=== PATIENT | female | born 1980 | race Caucasian/White ===

== ENCOUNTER → 2020-04-30 | Outpatient (CLI) | payer SELFPAY ==
[2017-04-23 14:03] VITALS: BMI 33.9
--- NOTE | 2020-04-29 08:30 | FLU_PTH ---
PATIENT: MILTON JUNE LOC: [facility] U#:[id number] AGE/SX: 40/F ROOM: RE04/30/[address]: Dr. Inez Patricio MD : 1980 BED: DIS: 04/30/2020 SPEC #: [id number] RECD: 04/30/20 11:43 STATUS: MICAH REMonica #: [id number] TEGAN: 04/29/20 08:[address]: Inez Patricio DEPT: CYTOLOGY RECD BY: Delilah Jiang ENTERED: 05/01/20 05:51 SP TYPE: Fluid OTHR DR: Dr. Burak Dykes, DO Tissues: Breast, NOS Procedures: Special Stain Group II Surgery Specimen Level IV Cytospin Fluid HEADER OPERATION: Ultrasound-guided right breast cyst aspiration PRE-OP DIAGNOSIS: Abnormal mammogram TISSUE SUBMITTED: Right breast cyst fluid for cytology DIAGNOSIS CYTOLOGY Fine needle aspiration, right breast (cytospin and cell block): Negative for malignant cells. See cytology study. AM:federico 05/01/2020 CYTOLOGY STUDY Slides are reviewed. The specimen contains rare ductal epithelial cells. Clinical correlation is suggested. CYTOLOGY GROSS Received is 15 ml of cloudy fluid labeled with the patient's name and and designated per the requisition as right breast cyst. Submitted for cytology preparation including cell block. / federico 04/30/20 TC:5 CPT: 51973, 51010
== END | disposition home or self-care (01) ==
LOC: LABSPEC 13:45
PROVIDERS: PCP Student in an Organized Health Care Education/Training Program; Referring Provider Surgery; Visit Provider Surgery
DX: R92.8 Other abnormal and inconclusive findings on diagnostic imaging of breast (principal)
CPT/HCPCS: 88108; 88305; 88313

== ENCOUNTER → 2021-06-10 | Outpatient (CLI) | payer SELFPAY ==
[2021-06-17 15:33] LABS: HPV APTIMA, High Risk Negative (Negative)
== END | disposition home or self-care (01) ==
LOC: LABSPEC 13:23
PROVIDERS: PCP Student in an Organized Health Care Education/Training Program; Visit Provider Student in an Organized Health Care Education/Training Program
DX: Z12.4 Encounter for screening for malignant neoplasm of cervix (principal)
CPT/HCPCS: 87624; 88175; G0145

== ENCOUNTER 2021-07-27 23:01 | Emergency (ER) | payer SELFPAY ==
[2021-07-27 23:02] VITALS: BP 168/102; PULSE 82; RESP 18; TEMP 35.9; O2SAT 100; BMI 33.3
--- NOTE | 2021-07-27 23:31 | EDS_ITS ---
HPI HPI - GI History of Present Illness Chief Complaint: Abd Pain Informant: patient Narrative Narrative: Patient is a 41-year-old female with history of 2 C-sections and hypertension presenting with abdominal pain and vomiting. Patient states she ate dinner around 4 PM which consisted of chicken and corn on the cob. Shortly after that she developed multiple episodes of vomiting. States he threw at least 8 times. Last time she threw up was at 10:30 PM. She notes the last time she threw up there was streaks of blood and bile in her vomit. She is also complaining of pretty significant epigastric and upper abdominal pain that radiates to her back. She has chills associate with the nausea but does not think she is any fevers. Denies any chest pain or difficulty breathing. Her last bowel movement was yesterday and she feels it was normal. She denies any urinary symptoms. She denies concern for . She is never really had a thing like this before. No sick contacts at home. No other complaints at this time. Patient denies any tobacco, alcohol or illicit drug use. PFSH PFSH Home Medications lisinopril 20 mg-hydrochlorothiazide 12.5 mg tablet PO 30 days ##30 04/23/17 [History Last Taken Unknown] famotidine 20 mg tablet (Pepcid) 20 mg PO BID #14 tabs 07/28/21 [Rx Last Taken Unknown] ondansetron 4 mg disintegrating tablet 4 mg PO Q6H PRN nausea and vomiting #14 tabs 07/28/21 [Rx Last Taken Unknown] Allergy/AdvReac Type Severity Reaction Status Date / Time Penicillins Allergy Unknown Verified 04/23/17 14:08 Social History Smoking Status: Never smoker ROS ROS ED Constitutional Constitutional ED: Reports chills; Denies fever(s) ENT ENT ED: Denies sore throat Cardiovascular Cardiovascular: Denies chest pain or palpitations Respiratory/Chest Respiratory/Chest: Denies cough or dyspnea Gastrointestinal Gastrointestinal: Reports abdominal pain, nausea and vomiting; Denies constipation or diarrhea Genitourinary Genitourinary ED: Denies dysuria or hematuria Musculoskeletal Musculoskeletal: Reports back pain; Denies arthralgias or myalgias Integumentary Denies rash Neurologic Neurologic: Denies headache(s) Hematologic/Lymphatic Hematologic/Lymphatic: Denies easy bleeding or easy bruising EXAM Physical Exam Const Vital Signs: 07/27/21 23:02 07/28/21 02:32 Temperature 96.7 F L Temperature Source Temporal Pulse Rate 82 73 Respiratory Rate 18 20 H Blood Pressure 168/102 H 148/93 H Blood Pressure Mean 124 111 Pulse Ox 100 98 Oxygen Delivery Method Room Air Room Air Positive well nourished, well developed and obese General Appearance ED: well developed and NAD Nutritional Appearance: obese HEENT Reports moist mucous membranes Eyes PERRL and EOMs intact bilaterally Resp normal respiratory effort and clear to auscultation bilaterally Cardio regular rate, regular rhythm and no murmurs GI non-distended and no masses GI Narrative: Epigastric and right upper quadrant tenderness palpation. Positive Quintana sign. Auscultation: normoactive bowel sounds Back/Spine no CVA tenderness Extremity full ROM General Extremety ED: Negative for edema or tenderness General Extremity: Negative for edema Neuro moves all extremities, no sensory deficits noted and gait normal Psych mental status grossly normal Skin Skin Narrative: Normal color General Skin Exam: Negative for jaundice MDM MDM MDM Narrative Medical decision making narrative: Patient evaluated for epigastric abdominal pain after eating dinner last night she has diffuse pain in her epigastric region but does have a positive Quintana sign. Belly labs obtained as well as a right upper quadrant ultrasound. Patient is given IV Zofran, IV Pepcid and IV fluids. On repeat evaluation she does not feel improved with pain however her nausea has been improved. She is then given a dose of IV morphine however her nausea is worse and she is given a dose of IV Reglan. Her lab work is remarkable for a leukocytosis of 12.7. CMP and lipase largely unremarkable. Urinalysis consistent with some mild dehydration and contamination. Repeat evaluation abdomen is now soft and nontender. Right upper quadrant ultrasound does not show any acute process but does show diffuse hepatic steatosis. Patient is informed of these findings and states she is aware of her known fatty liver disease. Patient is given p.o. challenge and tolerates this. Given that she does not have any kidney stones and her right upper quadrant pain has now resolved I have a lower suspicion for a calculus cholecystitis. Patient is given surgery for outpatient follow-up. She is counseled on the differential diagnosis including gastritis, gastroenteritis, peptic ulcer disease and biliary colic which do not show up on our testing. She is discharged home in improved and stable condition. She is given return precautions. Lab Data Attestation: I reviewed the patient's lab results. Labs: Laboratory Results - last 24 hr 07/27/21 07/27/21 07/27/21 23:25 23:25 23:50 WBC 12.7 H RBC 5.14 Hgb 14.6 Hct 43.9 MCV 85.4 MCH 28.4 MCHC 33.3 RDW Std Deviation 42.1 RDW Coeff of Kelsy 13.4 Plt Count 294 MPV 10.4 Immature Gran % (Auto) 0.900 Neut % (Auto) 70.1 H Lymph % (Auto) 18.7 L Meade % (Auto) 8.4 Eos % (Auto) 1.1 Baso % (Auto) 0.8 Absolute Neuts (auto) 8.9 H Absolute Lymphs (auto) 2.37 Nucleated RBC % 0 Sodium 137 Potassium 3.7 Chloride 102 Carbon Dioxide 29.0 Anion Gap 6 BUN 22 H Creatinine 0.84 Estim Creat Clear Calc 77.71 Est GFR (MDRD) Af Amer 95 Est GFR (MDRD) Non-Af 79 BUN/Creatinine Ratio 26.2 H Glucose 146 H Calcium 9.3 Total Bilirubin 0.30 Direct Bilirubin 0.15 AST 26 ALT 48 Alkaline Phosphatase 53 Total Protein 7.9 Albumin 4.0 Globulin 3.9 Lipase 115 Urine Color Yellow Urine Clarity Clear Urine pH 5.0 Ur Specific [place] 1.030 Urine Protein Negative Urine Glucose (UA) Normal Urine Ketones 5 H Urine Occult Blood 10 H Urine Nitrite Negative Urine Bilirubin Negative Urine Urobilinogen Normal Ur Leukocyte Esterase Negative Urine RBC 0 SEEN Urine WBC 0-5 SEEN Ur Squamous Epith Cells 0-5 SEEN Urine Bacteria 1+ Urine Mucus 0 SEEN Urine Test Negative Radiography Diagnostic Testing: Clinical Impression(s) from Imaging Studies Gallbladder Ultrasound 07/28/21 23:30 IMPRESSION: Diffuse hepatic steatosis. No cholelithiasis. No biliary dilatation Electronically Signed: Cristobal Blandon MD at 2:22 EDT , Discharge Plan Triage Chief Complaint: Abd Pain ED Provider: Susan Garcia Dx/Rx/DC Orders Clinical Impression: Vomiting, Acute upper abdominal pain Instructions: ED Abdominal Pain Unkn Cause Fem, ED Vomiting (Adult) Prescriptions: New ondansetron 4 mg tablet,disintegrating 4 mg PO Q6H PRN (Reason: nausea and vomiting) Qty: 14 0RF famotidine [Pepcid] 20 mg tablet 20 mg PO BID Qty: 14 0RF No Action lisinopril-hydrochlorothiazide 20-12.5 mg tablet PO 30 Days Qty: 30 Label Comments: Primary Care Provider: Burak Dykes Referrals: Gerhard Tracey MD [STAFF PHYSICIAN] - As Needed (If you continue to have pain ) Burak Dykes DO [Primary Care Provider] - Activity Restrictions/Additional Instructions: Your work-up here showed fatty liver but the gallbladder was normal. Your lab work for your abdomen was largely normal. You did have a very mild elevation of your white blood cell count which is nonspecific. If your symptoms are worsening please return to the emergency room. Eat a bland diet until you are feeling better. Disposition Disposition: Home, Self Care Discharge Date/Time: 07/28/21 04:32
[2021-07-27] MEDS: 0.9% Normal Saline 1,000 ML 1000 ML IV (23:41)
[2021-07-27] MEDS: Ondansetron 4 MG/2 ML Vial IV (23:41)
[2021-07-27] MEDS: Famotidine 200 MG/20 ML MDV 20 MG in 0.9% Normal Saline (Pres. free 8 ML 300 MG IV (23:41)
[2021-07-27 23:42] LABS: Absolute Lymphocyte Count 2.37 X10^3/uL (0.83-4.51); Absolute Neutrophil Count 8.9 X10^3/uL (2.0-7.7); Basophil% 0.8 % (0-1); Eosinophil# 0.14 X10^3/uL; Eosinophils% 1.1 % (0-5); Hematocrit 43.9 % (37-47); Hemoglobin 14.6 g/dL (12.0-15.0); Lymphocyte # 2.37 X10^3/ul (0.83-4.51); Lymphocyte % 18.7 % (19-41); Mean Corp Hgb Conc 33.3 g/dL (32-36); Mean Corpuscular Hgb 28.4 pg (27.0-32.0); Mean Corpuscular Volume 85.4 fL (81-99); Mean Platelet Vol. 10.4 fl (6.2-12.0); Monocyte# 1.07 X10^3/uL; Monocyte% 8.4 % (0-10); NRBC Flagged by Analyzer 0 % (0-5); Neutrophil # 8.88 X10^3/uL (2.7-7.7); Neutrophil % 70.1 % (47-70); Platelet Count 294 K/mm3 (150-450); RBC Distribution Width CV 13.4 % (11.6-14.6); RBC Distribution Width SD 42.1 fl (35.1-43.9); Red Blood Count 5.14 M/mm3 (4.2-5.4); White Blood Count 12.7 K/mm3 (4.4-11.0)
[2021-07-27 23:53] LABS: Mucous, Urine 0 SEEN /hpf (<or=2+); Red Blood Cells-Urine 0 SEEN /hpf (0-5)
[2021-07-27 23:55] LABS: AST(SGOT) 26 U/L (15-37); Alanine Aminotransfer ALT/SGPT 48 U/L (13-56); Alkaline Phosphatase 53 U/L (45-117); Anion Gap 6 (5-15); BUN 22 mg/dL (7-18); BUN/Creat Ratio 26.2 RATIO (10-20); Bilirubin, Direct 0.15 mg/dL (0.00-0.30); Calcium,Total 9.3 mg/dL (8.5-10.1); Chloride 102 mmol/L (98-107); Creatinine, Serum 0.84 mg/dL (0.55-1.02); EST Glomerular Filtration Rate 79 mL/min (>60); Est Glom Filt Rate - Afr Amer 95 mL/min (>60); Estimated Creatinine Clearance 77.71 ml/min; Globulin 3.9 g/dL (2.2-4.2); Glucose 146 mg/dL (74-106); Lipase 115 U/L (73-393); Potassium 3.7 mmol/L (3.5-5.1); Protein, Total 7.9 g/dL (6.4-8.2); Sodium Level 137 mmol/L (136-145)
[2021-07-28 00:11] LABS: Color, Urine Yellow (Yellow); Glucose, Dipstick Normal (Normal); Ketone-Dipstick 5 mg/dl (Negative); Leukocyte Esterase-Dipstick Negative /ul (Negative); Nitrite-Dipstick Negative (Negative); Occult Blood-Urine 10 /ul (Negative); Protein-Dipstick Negative (Negative); Urine Bilirubin Dipstick Negative (Negative); Urine Clarity Clear (Clear); Urine Urobilinogen Normal (Normal)
[2021-07-28 00:22] LABS: Bacteria 1+ /hpf (None Seen); Internal QC Validated? YES +Cl - CLEAR BKGD; Pregnancy, Urine Negative Negative; Squamous Epithelial Cells - UA 0-5 SEEN /hpf (5-10); White Blood Cells 0-5 SEEN /hpf (0-5)
[2021-07-28] MEDS: Morphine 4 MG/ML Syringe IV (02:29)
[2021-07-28 02:32] VITALS: BP 148/93; PULSE 73; RESP 20; O2SAT 98
[2021-07-28] MEDS: Metoclopramide 10 MG/2 ML Vial 5 MG IV (03:17)
--- NOTE | 2021-07-28 23:30 | US_ITS ---
STUDY: ABDOMINAL ULTRASOUND - RIGHT UPPER QUADRANT REASON FOR VISIT: Female, 41 years old PAIN-UPPER ABD TECHNIQUE: Ultrasound evaluation of the right upper quadrant was performed with real-time and static heard-scale imaging. TECHNICAL QUALITY: Adequate. COMPARISON: None. FINDINGS: Visualized liver parenchyma shows increased echogenicity. There is no gallbladder stone or polyp. No gallbladder wall thickening or pericholecystic fluid is seen. Sonographic Quintana''s sign has been reported negative. Common bile duct measures 0.4 cm in diameter. Visualized pancreatic head and body, portal vein, and right kidney are unremarkable. There is no free fluid in the Rausch''s pouch. US/Gallbladder IMPRESSION: Diffuse hepatic steatosis. No cholelithiasis. No biliary dilatation Electronically Signed: Cristobal Blandon MD at 2:22 EDT ,
== END 2021-07-28 04:32 | disposition home or self-care (01) ==
PROVIDERS: Emergency Provider Emergency Medicine; PCP Student in an Organized Health Care Education/Training Program; Visit Provider Emergency Medicine
DX: R10.10 Upper abdominal pain, unspecified (principal); R11.2 Nausea with vomiting, unspecified; I10 Essential (primary) hypertension; K76.0 Fatty (change of) liver, not elsewhere classified
CPT/HCPCS: 76705; 80048; 80076; 81001; 81025; 83690; 85025; 96361; 96365; 96375; 99283; J7030; A4216; J2405; J3490

== ENCOUNTER 2021-07-29 15:34 | Inpatient (IN) | payer SELFPAY ==
[2021-07-29 15:34] VITALS: BP 136/103; PULSE 118; RESP 18; TEMP 37.4; O2SAT 97; BMI 33.3
--- NOTE | 2021-07-29 16:01 | CT_ITS ---
STUDY: CT Abdomen And Pelvis W/ Contrast Injection 07/29/2021 5:21 PM REASON FOR EXAM: Female, 41 years old. ABDOMINAL PAIN RLQ abdominal pain TECHNIQUE: Transaxial images were obtained without oral contrast, and with IV 100mL [id number]-300 intravenous contrast. Individualized dose optimization techniques were used for this CT. COMPARISON: None. FINDINGS: The visualized lung bases are unremarkable. The visualized portions of the heart are within normal limits. Unremarkable liver. Gallbladder wall inflammation. Solitary gallstone in the neck of the gallbladder. Unremarkable spleen. Unremarkable pancreas. Unremarkable bilateral adrenal glands. No acute findings of the right kidney. No acute findings of the left kidney. Unremarkable visualized stomach. Unremarkable small intestine. Unremarkable colon. The appendix is visualized and appears unremarkable. There are no acute findings of the abdominal aorta. Unremarkable inferior vena cava. Subcentimeter mesenteric lymph nodes. Unremarkable urinary bladder. Normal visualized uterus. Unremarkable abdominal wall. Unremarkable osseous structures. CT/Abdomen/Pelvis W IV Cont ONLY IMPRESSION: (NOT LISTED IN ORDER OF SIGNIFICANCE) Acute cholecystitis with cholelithiasis. The appendix is visualized and appears unremarkable. Other findings as above. Electronically Signed: Wil Alvarez MD at 17:23 EDT ,
--- NOTE | 2021-07-29 16:02 | ED.VIS.GI ---
HPI HPI - GI History of Present Illness Chief Complaint: Abd Pain Narrative Narrative: 41-year-old female past medical history of hypertension, presents with continued abdominal pain that she has had since Wednesday, 3 days ago. She states she ate dinner at 4 PM and began having nausea, vomiting, and right-sided abdominal pain. She presented to the emergency department and states she had an ultrasound which showed that her gallbladder was fine. She was discharged home on early Wednesday morning from the emergency department. While her nausea and vomiting has resolved, she has pain in her right lower quadrant, and her left lower quadrant. She denies any fevers or chills. No diarrhea. No other symptoms. She went to her primary care physician's office and had lab work done. She presents because of the continued pain. PFSH PFSH Medical History Acute upper abdominal pain HTN (hypertension) Sinusitis, acute Vomiting Home Medications lisinopril 20 mg-hydrochlorothiazide 12.5 mg tablet 2 tab PO DAILY 30 days ##30 04/23/17 [History Last Taken Unknown] famotidine 20 mg tablet (Pepcid) 20 mg PO BID #14 tabs 07/28/21 [Rx Last Taken Unknown] ondansetron 4 mg disintegrating tablet 4 mg PO Q6H PRN nausea and vomiting #14 tabs 07/28/21 [Rx Last Taken Unknown] Allergy/AdvReac Type Severity Reaction Status Date / Time house dust Allergy Mild PT UNSURE Verified 07/29/21 15:36 OF REACTION Penicillins Allergy Unknown Verified 07/29/21 15:36 mold Allergy Mild PT UNSURE Uncoded 07/29/21 15:36 OF REACTION pet dander Allergy Mild PT UNSURE Uncoded 07/29/21 15:36 OF REACTION Family History Grandmother Breast cancer Diabetes Heart disease Mother Hypertension Aunt Breast cancer Surgical History S/P section Status post carpal tunnel release of both wrists Social History adopted: No Smoking Status: Never smoker ROS ROS ED ROS Narrative Constitutional: No fever, no chills. HEENT: No sore throat. No neck pain. No loss of vision. No rhinorrhea. Cardiovascular: No chest pain. No palpitations. No pedal edema. Respiratory: No cough, no shortness of breath. Abdominal: Bilateral lower quadrant abdominal pain, right greater than left. No nausea. No vomiting.-Resolved Genitourinary: No dysuria. No hematuria. Musculoskeletal: No myalgias. No arthralgias. Neurologic: No headaches. No dizziness. No lightheadedness. Skin: No rash. No change in color. Psychiatric: No depression. No anxiety. EXAM Physical Exam Narrative Exam Narrative: Afebrile. Vital signs noted. HEENT: Normocephalic. Atraumatic. PERRL, EOMI. Neck soft and supple. No point tenderness or step off. Cardiovascular: Regular rate and rhythm. No murmurs, rubs, or gallops appreciated. Respiratory: No tachypnea. Lungs clear to auscultation bilaterally. Gastrointestinal: Abdomen soft, with tenderness to palpation right lower quadrant, more than left, with normoactive bowel sounds. No rebound or guarding. Negative heel strike. Negative Rovsing sign, no peritoneal signs. Neurological: Awake. Alert. Nonfocal, nonlateralizing. Skin: No rash. Normal color. No pallor. Musculoskeletal: No pedal edema. Full range of motion extremities. Const Vital Signs: 07/29/21 15:34 07/29/21 17:40 07/29/21 17:42 Temperature 99.4 F H 99.4 F H Temperature Source Temporal Temporal Pulse Rate 118 H 107 H 107 H Respiratory Rate 18 16 16 Blood Pressure 136/103 H 132/92 H 132/92 H Blood Pressure Mean 114 105 Pulse Ox 97 96 96 Oxygen Delivery Method Room Air Room Air Room Air MDM MDM MDM Narrative Medical decision making narrative: I was able to review her laboratory work from today. She has an elevated white count of 27,000 which is increased significantly from 4 days ago when it was 12. Her urine test was negative, and this was only 3 days ago. I do not feel that repeat laboratory work is indicated. She will be given morphine and ondansetron along with a IV fluid bolus. She has slightly elevated temperature of 99.4. Concern is for appendicitis. CT imaging will be obtained with IV contrast. Her CT comes back with acute cholecystitis with cholelithiasis. Appendix is visualized and is unremarkable. I discussed patient with Dr. Solis who saw her this afternoon. He will admit her to his service and perform cholecystectomy tomorrow. She will be started on Zosyn. She states that her penicillin allergy was hives but no anaphylaxis. She is willing to receive a dose of piperacillin. She will be watched for reaction. Disposition is admitted in stable condition. Lab Data Attestation: I reviewed the patient's lab results. Radiography Diagnostic Testing: Clinical Impression(s) from Imaging Studies Abdomen/Pelvis CT 07/29/21 16:01 IMPRESSION: (NOT LISTED IN ORDER OF SIGNIFICANCE) Acute cholecystitis with cholelithiasis. The appendix is visualized and appears unremarkable. Other findings as above. Electronically Signed: Wil Alvarez MD at 17:23 EDT , Discharge Plan Triage Chief Complaint: Abd Pain ED Provider: Porfirio Walker Dx/Rx/DC Orders Clinical Impression: Cholecystitis with cholelithiasis, Abdominal pain Prescriptions: No Action lisinopril-hydrochlorothiazide 20-12.5 mg tablet 2 tab PO DAILY 30 Days Qty: 30 Label Comments: ondansetron 4 mg tablet,disintegrating 4 mg PO Q6H PRN (Reason: nausea and vomiting) Qty: 14 0RF famotidine [Pepcid] 20 mg tablet 20 mg PO BID Qty: 14 0RF Primary Care Provider: Burak Dykes Referrals: Burak Dykes DO [Primary Care Provider] - Disposition Disposition: Home, Self Care
[2021-07-29] MEDS: Morphine 4 MG/ML Syringe IV (16:14)
[2021-07-29] MEDS: Ondansetron 4 MG/2 ML Vial IV (16:14)
[2021-07-29] MEDS: 0.9% Normal Saline 1,000 ML 1000 ML IV (16:14)
--- NOTE | 2021-07-29 17:31 | EKG12_ITS ---
Test Reason : ABNL PAIN Blood Pressure : / mmHG Vent. Rate : 100 BPM Atrial Rate : 100 BPM P-R Int : 164 ms QRS Dur : 064 ms QT Int : 334 ms P-R-T Axes : 029 014 012 degrees QTc Int : 430 ms Normal sinus rhythm Normal ECG Confirmed by JANETTE RAO, RUBÉN ([id number]), proposal editor MARIO ALBERTO ESCOBEDO ([id number]) on 07/31/2021 10:21:19 AM Referred By: ALLI Confirmed By:RUBÉN SAVAGE MD
[2021-07-29 17:40] VITALS: BP 132/92; PULSE 107; RESP 16; O2SAT 96
[2021-07-29 17:42] VITALS: BP 132/92; PULSE 107; RESP 16; TEMP 37.4; O2SAT 96
[2021-07-29] MEDS: 0.9% Normal Saline 1,000 ML 999 ML IV (18:19)
[2021-07-29 18:30] VITALS: BP 141/83; PULSE 98; RESP 18; TEMP 37.7; O2SAT 98
[2021-07-29 18:35] VITALS: BMI 35.2
[2021-07-29] MEDS: Potassium Chloride 10mEq/100mL 10 MEQ/100 ML IV.SOLN. 100 MEQ IV BOLUS ×3 (19:34→21:49)
[2021-07-29 19:57] VITALS: PULSE 96
[2021-07-29] MEDS: 0.9% Normal Saline 1,000 ML 125 ML IV (20:06)
[2021-07-29] MEDS: metroNIDAZOLE 500 MG/100 ML BAG 100 MG IV (20:30)
[2021-07-29 22:53] VITALS: BP 135/84; PULSE 103; RESP 16; TEMP 37.4; O2SAT 95
[2021-07-29] MEDS: Ciprofloxacin 400 MG/200 ML BAG 200 MG IV (22:54)
[2021-07-29] MEDS: Pantoprazole Sodium 20 MG Tablet PO (22:56)
[2021-07-30] VITALS (20 sets, daily range): BP systolic 128–155; BP diastolic 75–104; PULSE 89–140; RESP 16–24; TEMP 36.4–37.3; O2SAT 88–99; BMI 35.2
--- NOTE | 2021-07-30 | GALL_PTH ---
PATIENT: MILTON JUNE LOC: [facility] U#:[id number] AGE/SX: 41/F ROOM: IL321 RE07/29/[address]: Dr. Gerhard Tracey MD : 1980 BED: 1 DIS: 07/31/2021 SPEC #: [id number] RECD: 07/30/21 12:56 STATUS: MICAH WAYNE #: [id number] TEGAN: 07/30/21 00:[address]: Gerhard Tracey DEPT: SURGICAL PATHOLOGY RECD BY: Heraclio Winn ENTERED: 07/30/21 12:56 SP TYPE: PATRICIA AGUILAR DR: Dr. Burak Dykes, DO Tissues: Gallbladder, NOS Procedures: Surgery Specimen Level III HEADER OPERATION: Laparoscopic cholecystectomy with IOC PRE-OP DIAGNOSIS: Acute cholecystitis, cholelithiasis TISSUE SUBMITTED: Gallbladder MICROSCOPIC DIAGNOSIS Gallbladder, cholecystectomy: Acute and chronic hemorrhagic and ulcerated cholecystitis and cholelithiasis. SJ:federico 07/31/2021 MICROSCOPIC DESCRIPTION Slides are reviewed. GROSS DESCRIPTION Received is one container labeled with the patient's name and designated gallbladder. The specimen consists of a gallbladder measuring 10 cm in length and up to 3.5 cm in diameter. A central defect is noted in the gallbladder. The external surface is pink-grigsby, smooth and glistening for the most part. Focally it is granular, hemorrhagic and contains cautery artifact. The gallbladder contains a small amount of hemorrhagic fluid and one ovoid, black stone measuring 2 x 1.8 x 1.5 cm. One small black stone is also noted measuring 0.5 cm in greatest dimension. The mucosa is congested and hemorrhagic. Sections of the gallbladder wall reveal hemorrhagic cut surfaces. The gallbladder wall measures up to 0.5 cm in thickness. Churn Driller sections from the gallbladder and the cystic duct are submitted in one cassette. / JACKLYN:federico 07/30/2021 TC:2 CPT: 91304
[2021-07-30] MEDS: 0.9% Normal Saline 1,000 ML 125 ML IV ×3 (05:02→21:05)
[2021-07-30] MEDS: metroNIDAZOLE 500 MG/100 ML BAG 100 MG IV ×3 (05:04→21:05)
[2021-07-30 05:17] LABS: Absolute Lymphocyte Count 2.16 X10^3/uL (0.83-4.51); Absolute Neutrophil Count 15.4 X10^3/uL (2.0-7.7); Basophil# 0.07 X10^3/uL; Basophil% 0.4 % (0-1); Eosinophil# 0.04 X10^3/uL; Eosinophils% 0.2 % (0-5); Hematocrit 41.3 % (37-47); Hemoglobin 13.6 g/dL (12.0-15.0); Lymphocyte # 2.16 X10^3/ul (0.83-4.51); Mean Corp Hgb Conc 32.9 g/dL (32-36); Mean Corpuscular Hgb 28.3 pg (27.0-32.0); Mean Platelet Vol. 10.4 fl (6.2-12.0); Monocyte% 9.2 % (0-10); NRBC Flagged by Analyzer 0 % (0-5); Neutrophil # 15.36 X10^3/uL (2.7-7.7); Neutrophil % 78.3 % (47-70); POSITIVE DIFFERENTIAL YES; Platelet Count 238 K/mm3 (150-450); RBC Distribution Width CV 13.8 % (11.6-14.6); RBC Distribution Width SD 43.4 fl (35.1-43.9); White Blood Count 19.6 K/mm3 (4.4-11.0)
[2021-07-30 05:19] LABS: Differential Indicated SCAN CRITERIA MET
[2021-07-30 05:34] LABS: Differential Comment SCANNED
[2021-07-30 05:49] LABS: ALB/GLOB Ratio 0.8 RATIO (0.9-2.4); AST(SGOT) 11 U/L (15-37); Alanine Aminotransfer ALT/SGPT 28 U/L (13-56); Albumin, Serum 2.9 g/dL (3.2-5.0); Alkaline Phosphatase 48 U/L (45-117); Anion Gap 7 (5-15); BUN 9 mg/dL (7-18); BUN/Creat Ratio 15.5 RATIO (10-20); Calcium,Total 8.4 mg/dL (8.5-10.1); Chloride 103 mmol/L (98-107); Creatinine, Serum 0.58 mg/dL (0.55-1.02); EST Glomerular Filtration Rate 120 mL/min (>60); Est Glom Filt Rate - Afr Amer 145 mL/min (>60); Estimated Creatinine Clearance 112.54 ml/min; Globulin 3.8 g/dL (2.2-4.2); Glucose 95 mg/dL (74-106); Potassium 3.4 mmol/L (3.5-5.1); Protein, Total 6.7 g/dL (6.4-8.2); Sodium Level 135 mmol/L (136-145)
[2021-07-30] MEDS: Potassium Chloride 10mEq/100mL 10 MEQ/100 ML IV.SOLN. 100 MEQ IV BOLUS ×2 (07:28→08:26)
--- NOTE | 2021-07-30 07:28 | PCM.HP.STD ---
HPI - General General Date of Admission: 07/29/21 HPI Narrative MILTON JUNE, is a 41 F who presents with acute cholecystitis. Patient was in the office yesterday for follow-up from the ER. She had ongoing abdominal pain and vomiting. Presented to the emergency room a CT scan revealed acute cholecystitis. She was admitted with antibiotics. She reports today her pain medicine is working. FOR[facility]LY [facility], [facility] Medical History (Updated 07/29/21 @ 18:07 by Beti Reeves) Acute upper abdominal pain HTN (hypertension) Mitral valve prolapse Sinusitis, acute Vomiting Home Medications lisinopril 20 mg-hydrochlorothiazide 12.5 mg tablet 2 tab PO DAILY 30 days ##30 04/23/17 [History Last Taken 07/29/21] famotidine 20 mg tablet (Pepcid) 20 mg PO BID #14 tabs 07/28/21 [Rx Last Taken 07/29/21 12:00] ondansetron 4 mg disintegrating tablet 4 mg PO Q6H PRN nausea and vomiting #14 tabs 07/28/21 [Rx Last Taken 07/28/21] Allergy/AdvReac Type Severity Reaction Status Date / Time house dust Allergy Mild PT UNSURE Verified 07/29/21 15:36 OF REACTION Penicillins Allergy Unknown Verified 07/29/21 15:36 mold Allergy Mild PT UNSURE Uncoded 07/29/21 15:36 OF REACTION pet dander Allergy Mild PT UNSURE Uncoded 07/29/21 15:36 OF REACTION Family History Grandmother Breast cancer Diabetes Heart disease Mother Hypertension Aunt Breast cancer Surgical History S/P section Status post carpal tunnel release of both wrists Social History adopted: No Smoking Status: Never smoker ROS Constitutional Constitutional: Reports anorexia; Denies fever(s) Eyes Eyes: Denies blurry vision ENT HEENT: Denies abnormal hearing Cardiovascular Cardiovascular: Denies chest pain Respiratory/Chest Respiratory/Chest: Denies cough or dyspnea Gastrointestinal Gastrointestinal: Reports abdominal pain, nausea and vomiting; Denies diarrhea, dysphagia or hematemesis Genitourinary Genitourinary: Denies change in urinary stream Musculoskeletal Musculoskeletal: Denies abnormal gait Integumentary Integumentary: Denies new lesions Neurologic Neurologic: Denies abnormal gait Psychiatric Psychiatric: Denies anxiety Endocrine Endocrinology: Denies flushing Hematologic/Lymphatic Hematologic/Lymphatic: Denies easy bleeding Vital Signs Vital Signs Vital Signs: 07/29/21 15:34 07/29/21 17:40 07/29/21 17:42 Temperature 99.4 F H 99.4 F H Temperature Source Temporal Temporal Pulse Rate 118 H 107 H 107 H Respiratory Rate 18 16 16 Respiratory Effort Respiratory Depth Respiratory Pattern Blood Pressure 136/103 H 132/92 H 132/92 H Blood Pressure Mean 114 105 Blood Pressure Source Blood Pressure Position Blood Pressure Location Pulse Ox 97 96 96 Oxygen Delivery Method Room Air Room Air Room Air 07/29/21 18:30 07/29/21 20:44 07/29/21 22:53 Temperature 99.9 F H 99.3 F H Temperature Source Temporal Oral Pulse Rate 98 103 H Respiratory Rate 18 16 Respiratory Effort Normal Respiratory Depth Normal Respiratory Pattern Normal Blood Pressure 141/83 H 135/84 H Blood Pressure Mean 102 101 Blood Pressure Source Monitor Blood Pressure Position Semi-Fowlers Blood Pressure Location Right Arm Pulse Ox 98 95 Oxygen Delivery Method Room Air Room Air Room Air 07/29/21 19:57 07/30/21 00:38 07/30/21 04:45 Temperature 98.8 F Temperature Source Oral Pulse Rate 96 140 H 94 Respiratory Rate 16 Respiratory Effort Respiratory Depth Respiratory Pattern Blood Pressure 134/75 H Blood Pressure Mean 94 Blood Pressure Source Blood Pressure Position Blood Pressure Location Pulse Ox 96 Oxygen Delivery Method Room Air 07/30/21 04:45 07/30/21 05:38 Temperature Temperature Source Pulse Rate 100 Respiratory Rate Respiratory Effort Normal Respiratory Depth Normal Respiratory Pattern Normal Blood Pressure Blood Pressure Mean Blood Pressure Source Blood Pressure Position Blood Pressure Location Pulse Ox Oxygen Delivery Method Room Air Weight Weight: 211 lb 6.4 oz Body Mass Index (BMI) 35.2 Physical Exam Const oriented x3 and no apparent distress Resp normal respiratory effort Cardio regular rate and regular rhythm GI soft to palpation Inspection: Negative for abdominal distention Palpation: tender RUQ Extremity normal to inspection Results Lab / Micro Data Result Diagrams: 07/30/21 04:38 07/30/21 04:38 Labs: Laboratory Results - last 24 hr 07/30/21 04:38: WBC 19.6 H, RBC 4.80, Hgb 13.6, Hct 41.3, MCV 86.0, MCH 28.3, MCHC 32.9, RDW Std Deviation 43.4, RDW Coeff of Kelsy 13.8, Plt Count 238, MPV 10.4, Immature Gran % (Auto) 0.900, Neut % (Auto) 78.3 H, Lymph % (Auto) 11.0 L, [place] % (Auto) 9.2, Eos % (Auto) 0.2, Baso % (Auto) 0.4, Absolute Neuts (auto) 15.4 H, Absolute Lymphs (auto) 2.16, Nucleated RBC % 0, Differential Comment SCANNED, Diff Path Review June07/30/21 04:38: Sodium 135 L, Potassium 3.4 L, Chloride 103, Carbon Dioxide 25.0, Anion Gap 7, BUN 9, Creatinine 0.58, Estim Creat Clear Calc 112.54, Est GFR (MDRD) Af Amer 145, Est GFR (MDRD) Non-Af 120, BUN/Creatinine Ratio 15.5, Glucose 95, Calcium 8.4 L, Total Bilirubin 0.70, AST 11 L, ALT 28, Alkaline Phosphatase 48, Total Protein 6.7, Albumin 2.9 L, Globulin 3.8, Albumin/Globulin Ratio 0.8 L Micro: Microbiology 07/29/21 17:37 Interface Orders SARS-CoV-2 Antigen (Rapid) - Final Radiology Impression Abdomen/Pelvis CT 07/29/21 16:01 IMPRESSION: (NOT LISTED IN ORDER OF SIGNIFICANCE) Acute cholecystitis with cholelithiasis. The appendix is visualized and appears unremarkable. Other findings as above. Electronically Signed: Wil Alvarez MD at 17:23 EDT Reading Location ID and State: [facility] / [place] , Service support , Assessment & Plan Assessment/Plan (1) Cholecystitis with cholelithiasis: PLAN: Patient has acute cholecystitis with a large gallstone. I discussed laparoscopic cholecystectomy with her and started her on antibiotics. I will plan to take her for laparoscopic cholecystectomy today. I discussed the procedure in detail with the patient. I discussed the risks, benefits, and alternatives of the procedure. I discussed the risks including but not limited to bleeding, infection, injury to surrounding organs such as the liver, bile duct, bowels. I did discuss the possibility of having to convert to an open procedure as well as the possibility that if any injuries occurred this may necessitate further surgery at a tertiary care center. Gerhard Tracey MD Pager: [facility] [address] [place] [address], [address] [place] [address] Office:
[2021-07-30] MEDS: Ciprofloxacin 400 MG/200 ML BAG 200 MG IV ×2 (10:00→22:21)
--- NOTE | 2021-07-30 10:23 | RAD_ITS ---
EXAM: FL CHOLANGIOGRAPHY AND/OR PANCREATOGRAPHY CLINICAL INDICATION: ABD PAIN, ETC TECHNIQUE: Fluoroscopic cholangiogram and/or pancreatography of the right upper quadrant. Fluoroscopic guidance was provided by a physician. This report was created using [employer] report generation technology. COMPARISON: None. FINDINGS: Single fluoroscopic spot view of the right upper quadrant obtained during laparoscopic cholecystectomy. Contrast injected into the cystic duct fills normal appearing intra and extrahepatic biliary tree. No filling defects to suggest retained stone. No evidence of obstruction with filling of the duodenum. RAD/Cholangiogram/ O R,Initial IMPRESSION: 1. Normal operative cholangiogram. 2. Total fluoroscopy time, 10 seconds Electronically Signed: Jas Goldstein MD at 11:32 EDT ,
[2021-07-30] MEDS: Bupivacaine Mpf 0.5% 30 ML VIAL (10:55)
[2021-07-30] MEDS: Lactated Ringers 1,000 ML 15 ML IV (11:15)
--- NOTE | 2021-07-30 11:41 | OP.PCM_ITS ---
Problems Associated Problem List Diagnoses (1) Cholecystitis with cholelithiasis: Report of Operation Date of Procedure: 07/30/21 Pre-Operative Diagnosis: Acute cholecystitis Post-Operative Diagnosis: Acute cholecystitis Surgery/Procedure Performed:: Laparoscopic cholecystectomy with cholangiogram Description of Surgical Findings:: Very inflamed gallbladder containing purulent material. Normal IOC. Specimen's removed: Gallbladder Description of Procedure: After obtaining informed consent patient was brought back to the operating room. General anesthesia was induced. The abdomen was prepped and draped in usual sterile fashion. A small midline incision was made superior to the umbilicus and deepened to the level of fascia. The fascia was elevated and incised. Next the peritoneum was elevated and incised in the same fashion. Finger sweep was performed and the Brambila trocar was placed into the abdomen. The balloon was inflated. The abdomen was inflated to 15 mmHg. Next a camera was introduced into the abdomen and the abdomen was inspected. Next under direct visualization three 5-mm ports were placed one subxiphoid and 2 subcostal. Next the gallbladder was elevated and retracted toward the right shoulder. The peritoneum was stripped from the gallbladder. The gallbladder was very inflamed. The infundibulum was located and retracted laterally. Next the triangle of Calot was dissected and the cystic duct and cystic artery were identified. Cholangiograms were performed. The Vega clamp was used to clamp across the infundibulum and the catheter needle was inserted into the gallbladder. Under fluoroscopy contrast was instilled into the gallbladder and the common duct, cystic duct as well as proximal hepatic ducts were identified. There was good filling of the duodenum. There were no filling defects noted in the common bile duct. The clamp was removed as well as the needle and the infundibulum was grasped once more. Three hemolock clips were placed across the cystic duct. The cystic duct was then divided leaving 2 clips on the stump. The cystic artery was clipped and divided in the same fashion. The hook cautery was then used to take the gallbladder off of the gallbladder bed. Hemostasis was obtained. Gallbladder fossa was irrigated and no active bleeding or bile leakage was noted. Next the camera was introduced in the subxiphoid port. An Endopouch bag was placed through the umbilical port and the gallbladder was placed into it. The gallbladder was then removed through the umbilical incision. The camera was then reinserted through the umbilical port. The gallbladder fossa was inspected once more and noted to be hemostatic with no leaking bile. The abdomen was suctioned dry. The 5 mm ports were removed under direct visualization. The umbilical port was then removed and the air was removed from the abdomen. Next using an 0 Vicryl suture the umbilical fascia was closed in a [id number] fashion. The umbilical port site was irrigated local anesthetic was administered to all the incisions. All the incisions were closed with interrupted subcuticular 4-0 Monocryl sutures followed by Steri- Strips and dressings. The patient was awoken and taken to PACU in stable condition. Admit VTE Documentation VTE Mechan Device Prophylaxis: SCD's
[2021-07-30 12:50] LABS: Pathologist Review Reviewed
[2021-07-30] MEDS: Morphine 2 MG/ML Syringe IV (15:10)
[2021-07-30] MEDS: 0.9% Saline Lock 10 ML Syringe IV (15:11)
--- NOTE | 2021-07-30 15:20 | CASEMGMT ---
Addendum entered by Kimberlyn Lindsay 07/30/21 15:38: Pt states she does have a rx card but has not used it. She states she typically just pays for meds out of pocket. Original Note: SAMIRA STOREY Assessment: Face to Face with pt for initial transition planning/care coordination assessment. SAMIRA STOREY introduced self and role at [facility], pt voices understanding and consents to assessment. Pt is A/O x4 and answers all questions appropriately at this time. Pt lying in bed in no distress. Care providers, pharmacy, and demographics verified/updated. Admitting Dx: cholecystitis with cholecystitis PCP:Donis Specialists:Pt denies. [facility]erred [facility]acy: [facility] Insurance: [facility] [employer] Prescription Benefit: yes LW/HPOA: Pt denies having a LW/DPOA and denies need for info regarding AD. LNOK: Abhishek Wynn, ; Audrey Jameson, mother Living Arrangements: Pt lives with and two children in a two story house with 4 steps to enter with a rail. Pt reports she is I in ADL's and denies concerns at home. Pt denies concerns at home. Transportation: Pt drives self and denies concerns with transportation. DME/HHC/SNF: Pt has a bipap at home. Denies any further DME. Denies previous hx of SNF stays or HHC. Pt states no concerns with going home at time of dc. Pt states no further concerns/needs. CM to follow. Advised pt to ask CM if any further question/concerns/needs arise, voices understanding. Pt Goal: Home Plan: Home
[2021-07-30] MEDS: Lisinopril 20 MG Tablet 40 MG PO (16:15)
[2021-07-30] MEDS: hydroCHLOROthiazide 12.5mg 25 MG PO (16:15)
[2021-07-30] MEDS: oxyCODONE 5 MG Tablet 10 MG PO (18:13)
[2021-07-30] MEDS: Pantoprazole Sodium 20 MG Tablet PO (21:07)
[2021-07-31 03:00] VITALS: PULSE 90
[2021-07-31 03:10] VITALS: BP 134/76; PULSE 101; RESP 16; TEMP 37.1; O2SAT 99
[2021-07-31] MEDS: 0.9% Normal Saline 1,000 ML 125 ML IV (04:59)
[2021-07-31] MEDS: metroNIDAZOLE 500 MG/100 ML BAG 100 MG IV ×2 (04:59→14:36)
[2021-07-31 06:26] LABS: Absolute Lymphocyte Count 1.69 X10^3/uL (0.83-4.51); Absolute Neutrophil Count 11.4 X10^3/uL (2.0-7.7); Basophil# 0.04 X10^3/uL; Basophil% 0.3 % (0-1); Eosinophil# 0.09 X10^3/uL; Eosinophils% 0.6 % (0-5); Hematocrit 36.9 % (37-47); Hemoglobin 12.2 g/dL (12.0-15.0); Lymphocyte # 1.69 X10^3/ul (0.83-4.51); Lymphocyte % 11.4 % (19-41); Mean Corp Hgb Conc 33.1 g/dL (32-36); Mean Corpuscular Hgb 28.3 pg (27.0-32.0); Mean Corpuscular Volume 85.6 fL (81-99); Mean Platelet Vol. 10.5 fl (6.2-12.0); Monocyte# 1.39 X10^3/uL; Monocyte% 9.4 % (0-10); NRBC Flagged by Analyzer 0 % (0-5); Neutrophil # 11.44 X10^3/uL (2.7-7.7); Neutrophil % 77.4 % (47-70); Platelet Count 232 K/mm3 (150-450); RBC Distribution Width CV 13.9 % (11.6-14.6); RBC Distribution Width SD 43.5 fl (35.1-43.9); Red Blood Count 4.31 M/mm3 (4.2-5.4); White Blood Count 14.8 K/mm3 (4.4-11.0)
[2021-07-31 06:51] LABS: ALB/GLOB Ratio 0.7 RATIO (0.9-2.4); AST(SGOT) 42 U/L (15-37); Alanine Aminotransfer ALT/SGPT 61 U/L (13-56); Albumin, Serum 2.5 g/dL (3.2-5.0); Alkaline Phosphatase 46 U/L (45-117); Anion Gap 6 (5-15); BUN 6 mg/dL (7-18); BUN/Creat Ratio 10.9 RATIO (10-20); Calcium,Total 8.2 mg/dL (8.5-10.1); Chloride 101 mmol/L (98-107); Creatinine, Serum 0.55 mg/dL (0.55-1.02); EST Glomerular Filtration Rate 127 mL/min (>60); Est Glom Filt Rate - Afr Amer 154 mL/min (>60); Estimated Creatinine Clearance 118.68 ml/min; Globulin 3.8 g/dL (2.2-4.2); Glucose 121 mg/dL (74-106); Potassium 3.4 mmol/L (3.5-5.1); Protein, Total 6.3 g/dL (6.4-8.2); Sodium Level 136 mmol/L (136-145)
[2021-07-31 08:24] VITALS: PULSE 95
--- NOTE | 2021-07-31 08:25 | PN.SURG_ITS ---
Subjective Subjective Patient did not have any nausea or vomiting with clears yesterday. She is passing flatus. Her pain is better today. Objective Data Objective Data Vital Signs: Vital Signs Temp Pulse Resp BP Pulse Ox 98.7 F 101 H 16 134/76 H 99 07/31/21 03:10 07/31/21 03:10 07/31/21 03:10 07/31/21 03:10 07/31/21 03:10 Oxygen Flow Rate (L/min) 2 Oxygen Delivery Method Nasal Cannula Weight: 211 lb 6.4 oz Body Mass Index (BMI) 35.2 Intake & Output: Intake and Output for Last 24 Hours 07/29/21 07/30/21 07/31/21 23:59 23:59 23:59 Intake Total 2925 / 2925 5135.01 / 5135.01 1207.5 / 1207.5 Balance 2925 / 2925 5135.01 / 5135.01 1207.5 / 1207.5 Lab / Micro Data Result Diagrams: 07/31/21 05:54 07/31/21 05:54 Labs: Laboratory Results - last 24 hr 07/30/21 04:38: Diff Path Review Reviewed 07/31/21 05:54: WBC 14.8 H, RBC 4.31, Hgb 12.2, Hct 36.9 L, MCV 85.6, MCH 28.3, MCHC 33.1, RDW Std Deviation 43.5, RDW Coeff of Kelsy 13.9, Plt Count 232, MPV 10.5, Immature Gran % (Auto) 0.900, Neut % (Auto) 77.4 H, Lymph % (Auto) 11.4 L, [place] % (Auto) 9.4, Eos % (Auto) 0.6, Baso % (Auto) 0.3, Absolute Neuts (auto) 11.4 H, Absolute Lymphs (auto) 1.69, Nucleated RBC % 0 07/31/21 05:54: Sodium 136, Potassium 3.4 L, Chloride 101, Carbon Dioxide 29.0, Anion Gap 6, BUN 6 L, Creatinine 0.55, Estim Creat Clear Calc 118.68, Est GFR (MDRD) Af Amer 154, Est GFR (MDRD) Non-Af 127, BUN/Creatinine Ratio 10.9, Glu cose 121 H, Calcium 8.2 L, Total Bilirubin 0.70, AST 42 H, ALT 61 H, Alkaline Phosphatase 46, Total Protein 6.3 L, Albumin 2.5 L, Globulin 3.8, Albumin/Globulin Ratio 0.7 L Micro: Microbiology 07/29/21 17:37 Interface Orders SARS-CoV-2 Antigen (Rapid) - Final Radiography Diagnostic Testing: Radiology Impression Cholangiogram 07/30/21 10:23 IMPRESSION: 1. Normal operative cholangiogram. 2. Total fluoroscopy time, 10 seconds Electronically Signed: Jas Goldstein MD at 11:32 EDT , Assessment & Plan Assessment/Plan (1) Cholecystitis with cholelithiasis: PLAN: Patient is doing well after laparoscopic cholecystectomy. Her white count continues to trend downward. Blood cultures are pending due to her tachycardia and low-grade fever. The patient reported no problems with clears yesterday and is having good urine output so I will stop her IV fluids and advance her diet. If she is tolerating diet later and her pain is well controlled on p.o. meds I will discharge her home later today. If not I will see how she is doing tomorrow. Gerhard Tracey MD Pager: [facility] [address] [place] [address], [address] [place] [address] Office:
[2021-07-31 10:00] VITALS: BP 118/77; PULSE 97; RESP 17; TEMP 37.2; O2SAT 96
[2021-07-31] MEDS: Lisinopril 20 MG Tablet 40 MG PO (10:01)
[2021-07-31] MEDS: Ciprofloxacin 400 MG/200 ML BAG 200 MG IV (10:02)
[2021-07-31] MEDS: oxyCODONE 5 MG Tablet PO (10:02)
[2021-07-31] MEDS: hydroCHLOROthiazide 12.5mg 25 MG PO (10:02)
[2021-07-31] MEDS: Pantoprazole Sodium 20 MG Tablet PO (10:02)
--- NOTE | 2021-07-31 12:17 | PCM.DC.SUM ---
Providers Date of Admission: 07/29/21 Primary Care Physician: Dr. Burak Dykes, Reason For Visit: CHOLECYSITIS WITH CHOLELITHIASIS Diagnosis Discharge Diagnosis (1) Cholecystitis with cholelithiasis: Status: Acute Code(s): K80.10 - Calculus of gallbladder with chronic cholecystitis without obstruction Plan: Patient is doing well after laparoscopic cholecystectomy. Her white count continues to trend downward. Blood cultures are pending due to her tachycardia and low-grade fever. The patient reported no problems with clears yesterday and is having good urine output so I will stop her IV fluids and advance her diet. If she is tolerating diet later and her pain is well controlled on p.o. meds I will discharge her home later today. If not I will see how she is doing tomorrow. Gerhard Tracey MD Pager: [facility] [address] [place] [address], [address] [place] [address] Office: Medications at Discharge Home Medications lisinopril 20 mg-hydrochlorothiazide 12.5 mg tablet 2 tab PO DAILY 30 days ##30 04/23/17 famotidine 20 mg tablet (Pepcid) 20 mg PO BID #14 tabs 07/28/21 acetaminophen 325 mg tablet (Tylenol) 650 mg PO Q4H PRN PRN PAIN/FEVER #0 tabs 07/31/21 ciprofloxacin HCl 500 mg tablet (Cipro) 500 mg PO BID #10 tabs 07/31/21 metronidazole 500 mg tablet 500 mg PO Q8H #15 tabs 07/31/21 oxycodone 5 mg tablet 5 - 10 mg PO Q6H PRN pain 5 days #20 tabs 07/31/21 Hospital Course Operations cholecystecomy Procedures None Summary of Care Provided Hospital Course: Patient presented with abdominal pain and acute cholecystitis. the following day she was taken for lap cholecystectomy and then started on a diet. discharged when tolerating diet Weight / BMI Weight Weight: 211 lb 6.4 oz Body Mass Index (BMI) 35.2 ABG / Lab / Microbiology Data Result Diagrams: 07/31/21 05:54 07/31/21 05:54 Laboratory: Laboratory Results - last 24 hr 07/30/21 04:38: Diff Path Review Reviewed 07/31/21 05:54: WBC 14.8 H, RBC 4.31, Hgb 12.2, Hct 36.9 L, MCV 85.6, MCH 28.3, MCHC 33.1, RDW Std Deviation 43.5, RDW Coeff of Kelsy 13.9, Plt Count 232, MPV 10.5, Immature Gran % (Auto) 0.900, Neut % (Auto) 77.4 H, Lymph % (Auto) 11.4 L, [place] % (Auto) 9.4, Eos % (Auto) 0.6, Baso % (Auto) 0.3, Absolute Neuts (auto) 11.4 H, Absolute Lymphs (auto) 1.69, Nucleated RBC % 0 07/31/21 05:54: Sodium 136, Potassium 3.4 L, Chloride 101, Carbon Dioxide 29.0, Anion Gap 6, BUN 6 L, Creatinine 0.55, Estim Creat Clear Calc 118.68, Est GFR (MDRD) Af Amer 154, Est GFR (MDRD) Non-Af 127, BUN/Creatinine Ratio 10.9, Glucose 121 H, Calcium 8.2 L, Total Bilirubin 0.70, AST 42 H, ALT 61 H, Alkaline Phosphatase 46, Total Protein 6.3 L, Albumin 2.5 L, Globulin 3.8, Albumin/Globulin Ratio 0.7 L Microbiology: Microbiology 07/29/21 17:37 Interface Orders SARS-CoV-2 Antigen (Rapid) - Final D/C Instructions Discharge Diet: Light diet - advance as tolerated Discharge Activity: May Drive (for 2-3 days or while taking narcotic pain medications.) and - (Do not drive, work heavy equipment or sign legal documents for 24 hours.) May shower in (days): 1 Lifting Restrictions: 20 lbs for 2 weeks Additional Activity Instructions: Pain medication may cause nausea. You should typically eat light foods as you take your pain medications. Pain medication may cause constipation. If this is a problem for you, please discuss with your doctor. Call your doctor if your incision/area has: Continuous Slow Oozing, Sudden Increased Bleeding, Increased Pain/ Swelling, Increased Redness and Foul Smelling Discharge Call your doctor if you observe: Fever of 101 or Higher Suture Line Care: Avoid Pulling/Pushing and Avoid Pinching/Bending Remove Dressing in: 2 days Additional Dressing/Incision Instructions: Leave operative bandaids on for 2 days. When you remove dressing, leave Steri-Strips on until your follow-up appointment, or until the Steri-Strips fall off on their own. Please Follow Up With: Gerhard Tracey MD When: Please call to schedule 2 week follow up appointment at [phone] Meaningful Use Info Meaningful Use Diagnoses (Choose all that apply): None applicable Discharge Plan Admission Admit Date/Time: 07/29/21 17:31 Attending Provider: Gerhard Tracey Primary Care Provider: Burak Dykes Discharge Orders/Prescriptions Prescriptions: New acetaminophen [Tylenol] 325 mg Tablet 650 mg PO Q4H PRN PRN (Reason: PAIN/FEVER) Qty: 0 0RF oxycodone 5 mg Tablet 5 - 10 mg PO Q6H PRN (Reason: pain) 5 Days Qty: 20 0RF ciprofloxacin HCl [Cipro] 500 mg tablet 500 mg PO BID Qty: 10 0RF metronidazole 500 mg tablet 500 mg PO Q8H Qty: 15 0RF Continued lisinopril-hydrochlorothiazide 20-12.5 mg tablet 2 tab PO DAILY 30 Days Qty: 30 Label Comments: famotidine [Pepcid] 20 mg tablet 20 mg PO BID Qty: 14 0RF Discontinued ondansetron 4 mg tablet,disintegrating 4 mg PO Q6H PRN (Reason: nausea and vomiting) Qty: 14 0RF Referrals / Follow Up: Burak Dykes DO [Primary Care Provider] - Disposition Disposition (needs filled in before D/C Order can be placed): Home, Self Care
[2021-07-31 14:33] VITALS: PULSE 96
[2021-07-31 14:38] VITALS: BP 118/74; PULSE 95; RESP 17; TEMP 36.7; O2SAT 96
[2021-07-31] MEDS: oxyCODONE 5 MG Tablet 10 MG PO (17:16)
== END 2021-07-31 17:31 | disposition home or self-care (01) | DRG 419 ==
LOC: ED 17:43 → MS3 18:07
PROVIDERS: Admitting Provider Surgery; Emergency Provider Emergency Medicine; PCP Student in an Organized Health Care Education/Training Program; Visit Provider Surgery
PROC: 0FT44ZZ Resection of Gallbladder, Percutaneous Endoscopic Approach (ICD-10-PCS; CPT 47610; principal; 2021-07-30 09:40)
DX: K80.10 Calculus of gallbladder with chronic cholecystitis without obstruction (principal); I10 Essential (primary) hypertension
CPT/HCPCS: 36415; 74177; 74300; 76000; 80053; 85025; 87040; 87811; 88304; 93005; 99284; J7030; J7120; Q9967; A4216; J0744; J2405

== ENCOUNTER → 2021-07-29 | Outpatient (CLI) | payer SELFPAY ==
[2021-07-29 15:18] LABS: Absolute Lymphocyte Count 2.25 X10^3/uL (0.83-4.51); Absolute Neutrophil Count 21.7 X10^3/uL (2.0-7.7); Basophil# 0.11 X10^3/uL; Basophil% 0.4 % (0-1); Eosinophil# 0.03 X10^3/uL; Eosinophils% 0.1 % (0-5); Hemoglobin 15.7 g/dL (12.0-15.0); Lymphocyte # 2.25 X10^3/ul (0.83-4.51); Lymphocyte % 8.3 % (19-41); Mean Corp Hgb Conc 33.4 g/dL (32-36); Mean Corpuscular Hgb 28.3 pg (27.0-32.0); Mean Corpuscular Volume 84.7 fL (81-99); Monocyte# 2.58 X10^3/uL; Monocyte% 9.6 % (0-10); NRBC Flagged by Analyzer 0 % (0-5); Neutrophil # 21.74 X10^3/uL (2.7-7.7); Neutrophil % 80.5 % (47-70); POSITIVE DIFFERENTIAL YES; Platelet Count 294 K/mm3 (150-450); RBC Distribution Width SD 43.4 fl (35.1-43.9); Red Blood Count 5.55 M/mm3 (4.2-5.4)
[2021-07-29 15:29] LABS: Differential Indicated SCAN CRITERIA MET
[2021-07-29 15:33] LABS: ALB/GLOB Ratio 0.8 RATIO (0.9-2.4); AST(SGOT) 11 U/L (15-37); Alanine Aminotransfer ALT/SGPT 38 U/L (13-56); Albumin, Serum 3.8 g/dL (3.2-5.0); Alkaline Phosphatase 56 U/L (45-117); Anion Gap 7 (5-15); BUN 13 mg/dL (7-18); BUN/Creat Ratio 14.7 RATIO (10-20); Calcium,Total 9.8 mg/dL (8.5-10.1); Chloride 99 mmol/L (98-107); Creatinine, Serum 0.89 mg/dL (0.55-1.02); EST Glomerular Filtration Rate 74 mL/min (>60); Est Glom Filt Rate - Afr Amer 89 mL/min (>60); Globulin 4.7 g/dL (2.2-4.2); Glucose 120 mg/dL (74-106); Lipase 89 U/L (73-393); Potassium 3.4 mmol/L (3.5-5.1); Protein, Total 8.5 g/dL (6.4-8.2); Sodium Level 135 mmol/L (136-145)
[2021-07-29 16:01] LABS: Differential Comment SCANNED
[2021-07-30 12:49] LABS: Pathologist Review Reviewed
== END | disposition home or self-care (01) ==
LOC: PAVLAB 15:02
PROVIDERS: PCP Student in an Organized Health Care Education/Training Program; Referring Provider Surgery; Visit Provider Surgery
DX: R10.10 Upper abdominal pain, unspecified (principal); R11.10 Vomiting, unspecified
CPT/HCPCS: 36415; 80053; 83690; 85025